=== PATIENT | male | born 1970 | race Caucasian/White ===

== ENCOUNTER 2016-09-12 16:23 | Inpatient (IN) | payer SELFPAY ==
[~2016-09-12] VITALS: Ht 182.9 cm; Wt 86.2 kg
[2016-09-12] MEDS ORDERED: SODIUM CHLORIDE 0.9% 1,000 ML IV ONE ×2 (17:24→20:53)
[2016-09-12] MEDS ORDERED: LORAZEPAM 2MG/ML CPJ IV STA (17:24)
[2016-09-12] MEDS ORDERED: LORAZEPAM 2MG/ML CPJ IM ONE (17:45)
[2016-09-12 18:28] LABS: HEMATOCRIT. 39.4 % (42.0-52.0); HEMOGLOBIN. 13.1 g/dL (14.0-18.0); MEAN CORPUSCULAR VOLUME 90.5 fL (80.0-94.0); MEAN PLATELET VOLUME 8.2 fl (7.4-10.4); PLATELET 369 x1000/uL (130-400); RED BLOOD CELL COUNT 4.36 mill/uL (4.7-6.1)
[2016-09-12 18:34] LABS: D-DIMER 1.5 mg/L FEU (<0.50); INR 1.1; PROTHROMBIN TIME 11.4 sec
[2016-09-12 18:41] LABS: CARBON DIOXIDE 23 mEq/L (21-32); CHLORIDE 100 mEq/L (98-107); ETHANOL BLOOD < 10 mg/dL
[2016-09-12 18:50] LABS: CREATINE KINASE 3959 IU/L (39-308)
[2016-09-12 19:05] LABS: PLATELET ESTIMATE NORMAL
[2016-09-12] MEDS ORDERED: LORAZEPAM 2MG/ML CPJ IV ONE (21:00)
[2016-09-12] MEDS ORDERED: PIPERACILLIN/TAZ 3.375G PREMIX 50 ML IV ONE (21:00)
[2016-09-12] MEDS ORDERED: SODIUM CHLORIDE 0.9% 1000ML BAG (SEPSIS BOLUS) IV ONE (21:30)
[2016-09-12] MEDS ORDERED: NA PHOS,M-B/NA PHOS,DI-BA ENEMA 118ML PR PRN (22:15)
[2016-09-12] MEDS ORDERED: NITROGLYCERIN 0.4MG TABLET SL SL PRN (22:15)
[2016-09-12] MEDS ORDERED: ONDANSETRON HCL 4MG/2ML VIAL IV PRN (22:15)
[2016-09-12] MEDS ORDERED: ZOLPIDEM TARTRATE 5MG TABLET PO PRN (22:15)
[2016-09-12] MEDS ORDERED: GUAIFENESIN 200MG/10ML SUGAR FREE UDC PO PRN (22:15)
[2016-09-12] MEDS ORDERED: MAGNESIUM/ALUMINUM HYDROXIDE/SIMETHICONE 30ML UDC PO PRN (22:15)
[2016-09-12] MEDS ORDERED: IPRATROPIUM/ALBUTEROL 0.5-3(2.5)MG/3ML NEB INH PRN (22:15)
[2016-09-12] MEDS ORDERED: DIPHENHYDRAMINE 50MG/ML VIAL IV PRN (22:15)
[2016-09-12] MEDS ORDERED: ACETAMINOPHEN 325MG TABLET PO PRN (22:15)
[2016-09-12] MEDS: SODIUM BICARBONATE 150 MEQ in DEXTROSE 5% WATER 1,000 ML IV SCH (22:21)
[2016-09-12] MEDS ORDERED: CLONIDINE 0.1MG TABLET PO PRN (22:25)
[2016-09-12] MEDS: LORAZEPAM 2MG/ML CPJ IV PRN ×2 (23:56→23:59)
[2016-09-13] VITALS (12 sets, daily range): BP systolic 104–137; BP diastolic 53–96
[2016-09-13] MEDS ORDERED: DOCUSATE SODIUM 100MG CAPSULE PO PRN (00:38)
[2016-09-13] MEDS: DILTIAZEM HCL 60MG TABLET PO SCH ×4 (01:01→17:01)
[2016-09-13] MEDS: LORAZEPAM 2MG/ML CPJ IV PRN (04:45)
[2016-09-13] MEDS: PIPERACILLIN/TAZ 3.375G PREMIX 50 ML IV SCH ×3 (05:45→22:00)
[2016-09-13] MEDS: SODIUM BICARBONATE 150 MEQ in DEXTROSE 5% WATER 1,000 ML IV SCH (06:12)
[2016-09-13 06:57] LABS: CREATINE KINASE MB FRACTION 28.8 ng/mL (0.5-3.6); TROPONIN I 0.09 ng/mL (0.00-0.04)
[2016-09-13] MEDS: SODIUM CHLORIDE 0.9% 1,000 ML IV SCH ×3 (08:15→18:04)
[2016-09-13] MEDS ORDERED: ASPIRIN 325MG EC TABLET PO SCH (09:00)
[2016-09-13] MEDS ORDERED: FAMOTIDINE 20MG TABLET PO SCH ×2 (09:00→17:00)
[2016-09-13] MEDS ORDERED: FAMOTIDINE 20MG/2ML VIAL IV SCH (09:00)
[2016-09-13] MEDS ORDERED: ENOXAPARIN 40MG/0.4ML SYR SUBCUT SCH (09:00)
[2016-09-13 11:05] LABS: BASOPHILS % 0.5 % (0.0-2.0); EOSINOPHILS % 0.2 % (0.0-5.0); HEMATOCRIT. 38.8 % (42.0-52.0); HEMOGLOBIN. 12.8 g/dL (14.0-18.0); LYMPHOCYTES % 10.2 % (20.0-50.0); MEAN CORPUSCULAR HEMOGLOBIN 29.8 pg (28.0-32.0); MEAN CORPUSCULAR VOLUME 90.6 fL (80.0-94.0); MEAN PLATELET VOLUME 8.9 fl (7.4-10.4); MONOCYTES % 13.3 % (2.0-8.0); NEUTROPHILS % 75.8 % (40.0-76.0); PLATELET 370 x1000/uL (130-400); RED BLOOD CELL COUNT 4.28 mill/uL (4.7-6.1); RED CELL DISTRIBUTION WIDTH 14.7 % (11.6-14.6)
[2016-09-13 11:14] LABS: CARBON DIOXIDE 24 mEq/L (21-32); CHLORIDE 95 mEq/L (98-107)
[2016-09-13 15:31] LABS: CREATINE KINASE MB FRACTION 20.6 ng/mL (0.5-3.6); TROPONIN I 0.04 ng/mL (0.00-0.04)
[2016-09-13] MEDS: HALOPERIDOL LACTATE 5MG/ML VIAL IM PRN (17:01)
[2016-09-14] VITALS: BP 125/73
[2016-09-14] MEDS: DILTIAZEM HCL 60MG TABLET PO SCH ×2 (00:30→06:35)
[2016-09-14] MEDS: HALOPERIDOL LACTATE 5MG/ML VIAL IM PRN (02:50)
[2016-09-14] MEDS: SODIUM CHLORIDE 0.9% 1,000 ML IV SCH (03:33)
[2016-09-14 04:38] VITALS: BP 135/59
[2016-09-14 06:00] VITALS: BP 137/76
[2016-09-14] MEDS: PIPERACILLIN/TAZ 3.375G PREMIX 50 ML IV SCH (06:00)
[2016-09-14 07:48] VITALS: BP 118/69
[2016-09-14] MEDS ORDERED: GABA-290 PO (08:01)
== END 2016-09-14 08:24 | disposition left against medical advice (07) | DRG 351 ==
LOC: ER 16:33 → 3WST 21:17 → EDBD 21:17 → ENRESERV 22:06 → 3WST 23:55
PROVIDERS: ADMIT Internal Medicine; ATTEND Internal Medicine
DX: M62.82 Rhabdomyolysis (principal); G92 Toxic encephalopathy; N17.9 Acute kidney failure, unspecified; E87.1 Hypo-osmolality and hyponatremia; E86.0 Dehydration; Z53.21 Procedure and treatment not carried out due to patient leaving prior to being seen by health care provider; I10 Essential (primary) hypertension; F41.9 Anxiety disorder, unspecified; F19.10 Other psychoactive substance abuse, uncomplicated; R74.0 Nonspecific elevation of levels of transaminase and lactic acid dehydrogenase [LDH]; R00.0 Tachycardia, unspecified; Z79.899 Other long term (current) drug therapy
CPT/HCPCS: 36415; 71010; 80053; 80061; 80307; 80329; 82550; 82553; 82962; 83036; 83605; 83880; 84443; 84484; 85025; 85379; 85610; 87040; 93005; 96365; 96366; 96372; 96375; 96376; 99291; G0482; J1630; J1650; J2060; J2543; J3490; J7030; J7070